=== PATIENT | male | born 1965 | race Caucasian/White ===

== ENCOUNTER 2016-06-27 17:39 | Emergency (ER) | payer MEDICAID ==
[2016-06-27 18:01] VITALS: BP 138/91; PULSE 95; RESP 18; TEMP 98.1; O2SAT 95
--- NOTE | 2016-06-27 18:26 | UCPHY ---
H & P Time Seen by Provider: 06/27/16 18:03 Patient Type: Established HPI/ROS: HPI Chronic rash, Out of hydroxyzine. 51-year-old male by private vehicle. This patient has been seen at this Urgent Care multiple times for the same complaint. He has a dermatitis and psoriasis. He has been referred to a drill press tender many times in the past. He has not yet followed up with a drill press tender. He presents the emergency department complaining of his same rash which is itching more now that he ran out of hydroxyzine. He is asking for a prescription for hydroxyzine and steroids. He denies fever. He reports that he has had this rash for about 8 years now. ROS: Constitutional: No fever, no chills. No weakness. Eyes: No discharge. No changes in vision. ENT: No sore throat. No nasal congestion or rhinorrhea. Respiratory: No cough. No shortness of breath. Skin: As above. Neurological: No headache. No focal weakness or altered sensation. Past medical history: As above. Dermatitis, psoriasis. [facility]. Social history: Here by himself. Physical Exam: General Appearance: Alert, no distress. This patient is responding to questions appropriately and in full sentences. This patient appears well- hydrated and well-nourished. Eyes: Pupils equal and round no pallor or injection. No lid edema, erythema or injection. ENT, Mouth: Mucous membranes are moist. The pharyngeal tissues are unremarkable. No edema or swelling. No asymmetry suggestive of abscess. No erythema or exudates. no oral involvement. Neurological: Motor sensory function is grossly intact. Cranial nerves are normal. Gait is normal. Skin: Warm and dry, Diffuse erythematous macular papular rash over neck and scalp, blanches, no petechiae, plaque-like in areas suggestive of psoriasis. Musculoskeletal: Neck is supple and nontender. Extremities are symmetrical. All joints range without pain or impingement. Psychiatric: No agitation. No depression. Database: EKG: Imaging: Procedures: Emergency department course: After my evaluation, I again discussed the urgency importance of Dermatology follow-up which can be arranged through his primary care physician at [facility]. In the meantime I will prescribe him hydroxyzine and a Medrol Dosepak. He feels comfortable going home and I feel he is safe for discharge. He understands the importance of dermatology follow-up. Return to Urgent Care precautions discussed with him. All of his questions were answered. He was discharged in good condition. Differential Diagnosis: The differential diagnosis on this patient includes but is not limited to Psoriasis, chronic dermatitis. Red man syndrome, Ankit Oleg syndrome erythema nodosum, erythema multiform unlikely. This represents a partial list of diagnoses considered. These considerations are based on history, physical exam, past history, reassessment and diagnostic testing. Smoking Status: Former smoker Constitutional: Initial Vital Signs Temperature (C) 36.7 C 06/27/16 17:56 Heart Rate 95 06/27/16 17:56 Respiratory Rate 18 06/27/16 17:56 Blood Pressure 138/91 H 06/27/16 17:56 O2 Sat (%) 95 06/27/16 17:56 O2 Delivery Mode Room Air Allergies/Adverse Reactions: Penicillins Allergy (Severe, Verified 03/12/16 16:49) Anaphylaxis Home Medications: Medication Instructions Recorded Hydroxyzine HCl 09/28/15 Triamcinolone 0.1% Cream 01/08/16 Desitin 06/27/16 hydrOXYzine HCL [hydrOXYzine HCL 25 mg PO Q6 PRN #30 tab 06/27/16 (RX)] Departure - Departure Disposition: Home, Routine, Self-Care Clinical Impression: Dermatitis, Psoriasis Condition: Good Instructions: Dermatitis (ED), Psoriasis (ED) Additional Instructions: Read and follow provided instructions. Follow-up with your primary care physician at [facility] for referral to a drill press tender as soon as possible. Take medication as prescribed. Return to the emergency department for worsening symptoms or other serious concerns. Referrals: ADENIKE ORTIZ,. [Primary Care Provider] - As per Instructions Prescriptions: hydrOXYzine HCL [hydrOXYzine HCL (RX)] 25 mg PO Q6 PRN #30 tab PRN Reason: Itching - PQRS PQRS Measurement: Not applicable.
== END 2016-06-27 18:31 | disposition home or self-care (01) ==
LOC: CED 17:39
DX: L30.9 Dermatitis, unspecified (principal); L40.9 Psoriasis, unspecified
CPT/HCPCS: 99214-PO; G0463-PO

== ENCOUNTER 2016-10-13 10:10 | Emergency (ER) | payer MEDICAID ==
[2016-10-13 10:21] VITALS: RESP 18
[2016-10-13] MEDS ORDERED: NS 1,000 ML IV ONE (10:40)
--- NOTE | 2016-10-13 10:45 | EDPHY ---
H & P Stated Complaint: cough,fever,lump rt lat neck x 4days Time Seen by Provider: 10/13/16 10:24 HPI/ROS: CHIEF COMPLAINT: Scalp swelling, cough, malaise History by patient HISTORY OF PRESENT ILLNESS: 51-year-old man smoker with psoriasis who presents complaining of 4 days of feeling unwell. His illness began 4 days ago when he suddenly felt very tired like he needs to lie down and take a nap. He went home , lie down and began having shaking chills followed by profuse sweats. He has had persistent diffuse body aches, fatigue and poor appetite. He complains of pain and swelling in his the left side of his scalp as well as a lump in the right side of his neck. He does have psoriasis on his neck and scalp but says is not usually so red and swollen. He also states that he has says cysts on his scalp but they are not usually painful. He has had a persistent dry, nonproductive cough. He denies any runny nose or sore throat. He has had no nausea or vomiting but he feels like he may begin to have diarrhea at any time and he has had a poor appetite been unable to eat. He says he has lost 8 lb over the last 4 days. He denies any back pain or urinary symptoms. He denies any alcohol or drug use. 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 REVIEW OF SYSTEMS: As in HPI, and all other systems reviewed and are negative Source: Patient - Personal History Current Tetanus/Diphtheria Vaccine: Yes Tetanus Vaccine Date: 2014 - Medical/Surgical History Hx Asthma: No Hx Chronic Respiratory Disease: No Hx Diabetes: No Hx Cardiac Disease: No Hx Renal Disease: No Hx Cirrhosis: No Hx Alcoholism: No Hx HIV/AIDS: No Hx Splenectomy or Spleen Trauma: No Other PMH: PMH:psoriasis, dermatitis,fractured legs - Family History Significant Family History: No pertinent family hx - Social History Smoking Status: Current every day smoker Alcohol Use: None Drug Use: None - Physical Exam Exam: General Appearance: Alert, nontoxic-appearing. Eyes: Pupils equal and round no pallor or injection. Head: Positive left-sided scalp tenderness and bogginess with diffuse erythema , multiple cyst-like lesions which are mildly tender ENT, Mouth: Mucous membranes moist. Oropharynx clear with no tonsillar enlargement Neck: Supple, without meningismus, positive half dollar sized tender node in right lateral posterior neck area, no anterior nodes, positive tender left lateral neck, positive diffuse erythema on Skin with cracking and scaling Respiratory: Normal, effort, There are no retractions, lungs are clear to auscultation. Cardiovascular: Regular rate and rhythm. Gastrointestinal: Abdomen is soft and nontender, no masses, bowel sounds normal. Neurological: Awake, alert and oriented x 3, no pronator drift, normal gait, no pronator drift Skin: As above, bilateral psoriatic plaques on knees and elbows Musculoskeletal: Neck is supple nontender. Extremities are symmetrical, full range of motion. Psychiatric: Patient has normal affect, there is no agitation. Constitutional: Initial Vital Signs Temperature (C) 37.2 C 10/13/16 10:13 Heart Rate 92 10/13/16 10:13 Respiratory Rate 18 10/13/16 10:13 Blood Pressure 123/88 H 10/13/16 10:13 O2 Sat (%) 95 10/13/16 10:13 Allergies/Adverse Reactions: Penicillins Allergy (Severe, Verified 10/13/16 10:14) Anaphylaxis Home Medications: Medication Instructions Recorded Triamcinolone 0.1% Cream 01/08/16 Clindamycin HCl [Clindamycin] 600 mg PO TID 14 Days 10/13/16 Medical Decision Making - Diagnostics Imaging: Discussed imaging studies w/ call center operations manager Radiologist ED Course/Re-evaluation: 51-year-old man presents with fever, cough, scalp redness and swelling in lymph nodes in his neck consistent with scalp cellulitis. Chest x-ray preliminary reading due to PACs down time showed no evidence of pneumonia. Patient had elevated white blood cell count but lactate was within normal limits as were his vital signs. He was given a L of fluid. He remained afebrile in the emergency department. He is nontoxic-appearing and I think a trial of oral antibiotics is reasonable at this point. We discussed return precautions including fever, worsening, drainage from the wounds or other worsening. I also recommend close follow-up with his primary care physician and if the lumps in his neck do not resolve after course of antibiotics these will need further evaluation. I explained this to the patient who expresses verbal understanding. - Data Points Laboratory Results: Laboratory Results 10/13/16 10:54 10/13/16 10:54 10/13/16 10/13/16 10/13/16 10:54 10:54 10:54 WBC 13.68 10^3/uL H 10^3/uL (3.80-9.50) RBC 5.48 10^6/uL 10^6/uL (4.40-6.38) Hgb 15.7 g/dL g/dL (13.7-17.5) Hct 46.3 % % (40.0-51.0) MCV 84.5 fL fL (81.5-99.8) MCH 28.6 pg pg (27.9-34.1) MCHC 33.9 g/dL g/dL (32.4-36.7) RDW 13.2 % % (11.5-15.2) Plt Count 305 10^3/uL 10^3/uL (150-400) MPV 9.2 fL fL (8.7-11.7) Neut % (Auto) 76.3 % H % (39.3-74.2) Lymph % (Auto) 11.3 % L % (15.0-45.0) [place] % (Auto) 11.2 % % (4.5-13.0) Eos % (Auto) 0.4 % L % (0.6-7.6) Baso % (Auto) 0.4 % % (0.3-1.7) Nucleat RBC Rel Count 0.0 % % (0.0-0.2) Absolute Neuts (auto) 10.43 10^3/uL H 10^3/uL (1.70-6.50) Absolute Lymphs (auto) 1.55 10^3/uL 10^3/uL (1.00-3.00) Absolute Monos (auto) 1.53 10^3/uL H 10^3/uL (0.30-0.80) Absolute Eos (auto) 0.06 10^3/uL 10^3/uL (0.03-0.40) Absolute Basos (auto) 0.05 10^3/uL 10^3/uL (0.02-0.10) Absolute Nucleated RBC 0.00 10^3/uL 10^3/uL (0-0.01) Immature Gran % 0.4 % % (0.0-1.1) Immature Gran # 0.06 10^3/uL 10^3/uL (0.00-0.10) ABG Lactic Acid 1.3 mmol/L mmol/L (0.5-1.6) Sodium 140 mEq/L mEq/L (134-144) Potassium 4.2 mEq/L mEq/L (3.5-5.2) Chloride 100 mEq/L mEq/L (97-110) Carbon Dioxide 23 mEq/l mEq/l (22-31) Anion Gap 17 mEq/L H mEq/L (8-16) BUN 14 mg/dL mg/dL (7-23) Creatinine 0.7 mg/dL mg/dL (0.7-1.3) Estimated GFR > 60 Glucose 97 mg/dL mg/dL (70-100) Calcium 9.1 mg/dL mg/dL (8.5-10.4) Influenza Typ A,B (DFA) 10/13/16 10:45 WBC RBC Hgb Hct MCV MCH MCHC RDW Plt Count MPV Neut % (Auto) Lymph % (Auto) [place] % (Auto) Eos % (Auto) Baso % (Auto) Nucleat RBC Rel Count Absolute Neuts (auto) Absolute Lymphs (auto) Absolute Monos (auto) Absolute Eos (auto) Absolute Basos (auto) Absolute Nucleated RBC Immature Gran % Immature Gran # ABG Lactic Acid Sodium Potassium Chloride Carbon Dioxide Anion Gap BUN Creatinine Estimated GFR Glucose Calcium Influenza Typ A,B (DFA) NEGATIVE FOR FLU (NEGATIVE) Medications Given: Discontinued Medications Sodium Chloride (Ns) 1,000 mls @ 0 mls/hr IV ONCE ONE PRN Reason: Wide Open Stop: 10/13/16 10:41 Last Admin: 10/13/16 11:00 Dose: 1,000 mls Departure - Departure Disposition: Home, Routine, Self-Care Clinical Impression: Cellulitis of scalp Condition: Fair Instructions: Cellulitis (ED) Additional Instructions: You were seen by Dr. Nancy Yousif today. Return for any worsening or new concerns. Take clindamycin (antibiotic) as directed. Return to ER if you get worse. Follow up with primary care physician or in the ED if the lump to Neck does not resolve after the course of antibiotics or they seem to be getting bigger. Referrals: ADENIKE ORTIZ,. [Primary Care Provider] - As per Instructions Stand Alone Forms: Work Excuse Prescriptions: Clindamycin HCl [Clindamycin] 600 mg PO TID 14 Days
[2016-10-13 11:14] LABS: % IMMATURE GRANULYOCYTES 0.4 % (0.0-1.1); ABSOLUTE IMMATURE GRANULOCYTES 0.06 10^3/uL (0.00-0.10); ADD DIFF? NO; ADD MORPH? NO; ADD SCAN? NO; ATYPICAL LYMPHOCYTE FLAG 0 (0-99); FRAGMENT RBC FLAG 0 (0-99); HEMATOCRIT 46.3 % (40.0-51.0); HEMOGLOBIN 15.7 g/dL (13.7-17.5); LEFT SHIFT FLG 0 (0-99); LIPEMIA HEMOLYSIS FLAG 90 (0-99); MEAN CELL HEMOGLOBIN 28.6 pg (27.9-34.1); MEAN CELL HEMOGLOBIN CONCENTR. 33.9 g/dL (32.4-36.7); MEAN CELL VOLUME 84.5 fL (81.5-99.8); MEAN PLATELET VOLUME 9.2 fL (8.7-11.7); PLATELET CLUMPS FLAG 10 (0-99); PLATELET COUNT 305 10^3/uL (150-400); RED BLOOD CELL COUNT 5.48 10^6/uL (4.40-6.38); RED CELL DISTRIBUTION WIDTH 13.2 % (11.5-15.2)
[2016-10-13 11:28] LABS: ANION GAP 17 mEq/L (8-16); CALCIUM 9.1 mg/dL (8.5-10.4); CARBON DIOXIDE 23 mEq/l (22-31); CHLORIDE 100 mEq/L (97-110); CREATININE 0.7 mg/dL (0.7-1.3); GLOMERULAR FILTRATION RATE > 60; GLUCOSE 97 mg/dL (70-100); POTASSIUM 4.2 mEq/L (3.5-5.2); SODIUM 140 mEq/L (134-144)
[2016-10-13 12:02] VITALS: TEMP 99.1
[2016-10-13 12:21] VITALS: BP 141/80; PULSE 90; O2SAT 97
[2016-10-13] MEDS ORDERED: CLINDAMYCIN 150 MG CAP ONE (12:38)
[2016-10-13] MEDS ORDERED: CLINDAMYCIN 150 MG CAP PO ONE (12:39)
== END 2016-10-13 12:45 | disposition home or self-care (01) ==
LOC: CED 10:10
DX: L03.811 Cellulitis of head [any part, except face] (principal); F17.200 Nicotine dependence, unspecified, uncomplicated
CPT/HCPCS: 71020-PO; 80048-PO; 83605-PO; 85025-PO; 87400-PO

== ENCOUNTER 2017-01-19 12:31 | Emergency (ER) | payer MEDICAID ==
[2017-01-19 12:41] VITALS: RESP 16; TEMP 97.5
--- NOTE | 2017-01-19 13:19 | EDPHY ---
H & P Time Seen by Provider: 01/19/17 13:00 HPI/ROS: This patient is long history of psoriasis that he reports tends to flare if he gets minor abrasions to his arms or hands. He explains that he work on a car few days ago sustaining superficial wounds which are healing but it seemed to cause a flare of his psoriasis he complains of itching and mild discomfort in his scalp bilateral arms and upper back is making sleep difficult. He continues with triamcinolone steroid cream by requests further treatment since his symptoms worsen. In the past he has had occasions of associated cellulitis but he states that he does not think he has this at this time because he has not had any significant pain or fevers associated with the symptoms. He also does not have any the swelling that has happened in the past when he has associated cellulitis. ROS: Constitutional: No fevers HEENT: No significant facial lesions that does complain of scalp. No ocular symptoms. Pulmonary: No complaints Neuro: No numbness or tingling 5 point ROS is otherwise negative. Past Medical/Surgical History: Psoriasis Smoking Status: Current every day smoker Physical Exam: Physical Exam Vital signs are normal. General: Pleasant 51-year-old male of light complexion with red hair No acute distress HEENT: Nose clear oropharynx clear with no intraoral lesions Eyes: Pupils equal and react to light. Extraocular motions are intact. No conjunctival injection Lungs: No respiratory distress. Cardiac: Brisk capillary refill is intact throughout. Pulses are 2+ and symmetric in the affected extremity. Skin: No rash or pallor - there is a small erythematous papules-1-2 mm to the scalp, upper back and face with plaque-like lesions consistent with psoriasis over extensor surfaces. He has a few superficial abrasions to bilateral forearms with no surrounding warmth or fluctuance. Neuro: Alert and oriented x3 with no sensorimotor deficits. Constitutional: Initial Vital Signs Temperature (C) 36.4 C 01/19/17 12:32 Heart Rate 82 01/19/17 12:32 Respiratory Rate 16 01/19/17 12:32 Blood Pressure 140/94 H 01/19/17 12:32 O2 Sat (%) 94 01/19/17 12:32 O2 Delivery Mode Room Air Allergies/Adverse Reactions: Penicillins Allergy (Severe, Verified 01/19/17 12:38) Anaphylaxis Home Medications: Medication Instructions Recorded Triamcinolone 0.1% Cream 01/08/16 Tazarotene [Tazorac] 30 gm TP DAILY #30 gel..gram. 01/19/17 hydrOXYzine HCL [Hydroxyzine HCl] 50 - 100 mg PO Q6 PRN #30 tablet 01/19/17 MDM/Departure - [facility] ED Course/Re-evaluation: Discussion: Findings are consistent with psoriasis in superficial abrasions to his arms. Appreciate no findings that would suggest cellulitis or abscess. Counseled him regarding this. - Depart Disposition: Home, Routine, Self-Care Clinical Impression: Psoriasis Condition: Good Instructions: Psoriasis (ED) Additional Instructions: Diagnosis: Psoriasis Plan: Continue your triamcinolone. Add Tazorac cream once a day in addition. For itching hydroxyzine as prescribed Follow up with Dr. Weeks-cycle specialist Prescriptions: hydrOXYzine HCL [Hydroxyzine HCl] 50 - 100 mg PO Q6 PRN #30 tablet PRN Reason: Itching Tazarotene [Tazorac] 30 gm TP DAILY #30 gel..gram. Referrals: Catie CABALLERO [Primary Care Provider] - As per Instructions REJI WEEKS [Medical Doctor] - As per Instructions
[2017-01-19 13:33] VITALS: BP 120/71; PULSE 68; O2SAT 95
== END 2017-01-19 13:25 | disposition home or self-care (01) ==
LOC: CED 12:31
DX: L40.9 Psoriasis, unspecified (principal); F17.200 Nicotine dependence, unspecified, uncomplicated

== ENCOUNTER 2017-01-22 13:24 | Emergency (ER) | payer MEDICAID ==
[2017-01-22 13:37] VITALS: BP 132/101; PULSE 92; RESP 16; TEMP 99; O2SAT 95
[2017-01-22] MEDS ORDERED: predniSONE 20 MG TAB PO ONE (13:51)
--- NOTE | 2017-01-22 13:55 | EDPHY ---
H & P Time Seen by Provider: 01/22/17 13:39 HPI/ROS: I saw this patient on 01/19/2017 for his psoriasis when he presented with an exacerbation. I prescribed Tazorac cream for him to use in addition to his triamcinolone. 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 His impression is that the Tazorac made the rash worse as he developed more redness to his arms within 24 hours of applying Tazorac. However, again he is also out of triamcinolone for 4 days now. 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 He describes significant relief of the itching however with the hydroxyzine the prescribed and he admits that he has been sleeping well due to control of the itching since he started the hydroxyzine as needed. ROS: No fevers no other constitutional symptoms Immunological: His superficial abrasions to his arms or healing. Integumentary: No new complaints. See HPI HEENT: No intraoral lesions. Pulmonary: No wheezing or shortness of breath 5 point ROS is otherwise negative Past Medical/Surgical History: Long history of psoriasis Smoking Status: Current every day smoker Physical Exam: Physical Exam Vital signs are normal. General: No acute distress HEENT: Atraumatic. Nose: Clear oropharynx: Clear with no angioedema. No intraoral lesions. Eyes: Pupils equal and react to light. Extraocular motions are intact. No conjunctival injection Lungs: Clear to auscultation bilaterally. No respiratory distress. Cardiac: Brisk capillary refill is intact throughout. Pulses are 2+ and symmetric in the affected extremity. Skin: Patient has erythema and the scalp a bilateral arms more than trunk with dry skin and some superficial desquamation small erythematous papules no significant warmth to touch. No petechia or purpura. Neuro: Alert and oriented x3 with no sensorimotor deficits. Constitutional: Initial Vital Signs Temperature (C) 37.2 C 01/22/17 13:34 Heart Rate 92 01/22/17 13:34 Respiratory Rate 16 01/22/17 13:34 Blood Pressure 132/101 H 01/22/17 13:34 O2 Sat (%) 95 01/22/17 13:34 O2 Delivery Mode Room Air Allergies/Adverse Reactions: Penicillins Allergy (Severe, Verified 01/22/17 13:38) Anaphylaxis Home Medications: Medication Instructions Recorded Triamcinolone 0.1% Cream 01/08/16 Tazarotene [Tazorac] 30 gm TP DAILY #30 gel..gram. 01/19/17 hydrOXYzine HCL [Hydroxyzine HCl] 50 - 100 mg PO Q6 PRN #30 tablet 01/19/17 predniSONE 60 mg PO DAILY #17 tab 01/22/17 MDM/Departure - MDM Medications Given: Discontinued Medications Prednisone (Prednisone) 60 mg PO EDNOW ONE Stop: 01/22/17 13:52 Last Admin: 01/22/17 13:59 Dose: 60 mg ED Course/Re-evaluation: The patient's findings are characteristic of significant psoriasis. Appreciate no evidence currently of associated cellulitis or other complicating factors. I think that his symptoms worsen due to him running of the triamcinolone rather than a allergic reaction to the Tazorac. Will start him on oral prednisone-60 mg dose given here and will continue this at home. I explained he can take this at the same time as the triamcinolone . He will continue the hydroxyzine if needed for itching. - Depart Disposition: Home, Routine, Self-Care Clinical Impression: Psoriasis Condition: Good Instructions: Psoriasis (ED) Additional Instructions: diagnosis: Psoriasis plan: Prednisone as prescribed Start triamcinolone addition starting tomorrow. continue your hydroxyzine for itching if needed. Follow-up with primary care physician. Return for any significant worsening despite treatment plan Prescriptions: predniSONE 60 mg PO DAILY #17 tab Referrals: ADENIKE ORTIZ,. [Primary Care Provider] - As per Instructions
== END 2017-01-22 14:13 | disposition home or self-care (01) ==
LOC: CED 13:24
DX: L40.9 Psoriasis, unspecified (principal); F17.200 Nicotine dependence, unspecified, uncomplicated

== ENCOUNTER 2017-10-11 19:38 | Emergency (ER) | payer MEDICAID ==
[2017-10-11 19:49] VITALS: BP 160/99
[2017-10-11] MEDS ORDERED: predniSONE 20 MG TAB PO ONE (19:56)
--- NOTE | 2017-10-11 19:57 | EDPHY ---
H & P Time Seen by Provider: 10/11/17 19:42 HPI/ROS: 52 yo M presents c/o burning skin. Long hx of psoriais , uses triamcinolone daily, often runs out. Occasionally uses hydroxyzine for itching. No fever or chills, no shortness of breath. Review of systems As per HPI General no fever no chills no weakness HEENT no eye pain no eye discharge. No eye redness, no sore throat Respiratory no cough, no shortness of breath Cardiac no chest pain, no peripheral edema GI no abdominal pain, no diarrhea, no constipation, no nausea, no vomiting no flank pain, no hematuria, no dysuria Musculoskeletal no myalgias, no joint pain Heme no easy bruising, no easy bleeding Endo no polyuria, no polydipsia Skin pos rashes, pos pruritus Neuro no syncope, no dizziness, no headaches Psych is no suicidal ideation, no homicidal ideation Past Medical/Surgical History: psoriasis Social History: occasional alcohol, no drugs Smoking Status: Current every day smoker Physical Exam: 52 yo M alert and oriented in nad non toxic appearance at, nc eomi, anicteric, conj without erythema neck supple, no jvd lungs cta bilat heart rrr abd nabs ext no cce skin with areas of erythema, induration primarily on extremities, scattered areas on trunk Constitutional: Initial Vital Signs Temperature (C) 36.6 C 10/11/17 19:46 Heart Rate 84 10/11/17 19:46 Respiratory Rate 18 10/11/17 19:46 Blood Pressure 160/99 H 10/11/17 19:46 O2 Sat (%) 97 10/11/17 19:46 O2 Delivery Mode Room Air Allergies/Adverse Reactions: Penicillins Allergy (Severe, Verified 01/22/17 13:38) Anaphylaxis Home Medications: Medication Instructions Recorded Triamcinolone 0.1% Cream 01/08/16 Tazarotene [Tazorac] 30 gm TP DAILY #30 gel..gram. 01/19/17 hydrOXYzine HCL [Hydroxyzine HCl] 50 - 100 mg PO Q6 PRN #30 tablet 01/19/17 predniSONE 60 mg PO DAILY #17 tab 01/22/17 predniSONE [Deltasone] 40 mg PO DAILY 5 Days #10 tablet 10/11/17 Medical Decision Making ED Course/Re-evaluation: Patient seen evaluated for burning skin. Impression Acute on chronic psoriasis Plan Prednisone burst Patient given prednisone 60 mg p.o. In emergency department Given prescription for prednisone 40 mg p.o. Q.day x5 days Advised follow-up with his primary care clinic Differential Diagnosis: Differential diagnosis considered but not limited to: Cellulitis, urticaria, inflammation of current psoriasis, eczema - Data Points Medications Given: Discontinued Medications Prednisone (Prednisone) 60 mg PO EDNOW ONE Stop: 10/11/17 19:57 Last Admin: 10/11/17 20:04 Dose: 60 mg Departure - Departure Disposition: Home, Routine, Self-Care Clinical Impression: Psoriasis, Dermatitis Condition: Good Instructions: Psoriasis (ED) Referrals: ADENIKE ORTIZ [Other] - As per Instructions Prescriptions: predniSONE [Deltasone] 40 mg PO DAILY 5 Days #10 tablet
== END 2017-10-11 20:05 | disposition home or self-care (01) ==
LOC: CED 19:38
DX: L30.9 Dermatitis, unspecified (principal); L40.9 Psoriasis, unspecified; F17.200 Nicotine dependence, unspecified, uncomplicated
CPT/HCPCS: J7512

== ENCOUNTER 2017-11-04 08:26 | Emergency (ER) | payer MEDICAID ==
[2017-11-04 08:32] VITALS: BP 155/94
[2017-11-04] MEDS ORDERED: predniSONE 20 MG TAB PO ONE (08:38)
--- NOTE | 2017-11-04 08:41 | EDPHY ---
H & P Time Seen by Provider: 11/04/17 08:30 HPI/ROS: This patient has a long history of psoriasis and is currently having a flare despite compliance with his triamcinolone. He also takes hydroxyzine for itching. He reports increasing discomfort from the itching to his torso primarily as well as his hands and arms. He reports that the worsening of the symptoms of taken place over the past week. He came in by private vehicle for further evaluation of the symptoms requesting prednisone as he has had some success with prednisone treatment in the past. However, he reports that in the past a 5 day course was insufficient and that he responds better to longer wetalbx-4-60 days. ROS: Constitutional: No fevers or chills. No fatigue. HEENT: No URI symptoms or other complaints. No ocular symptoms. integumentary: No intraoral lesions. Pulmonary: No shortness of breath Cardiovascular: No complaints 5 point ROS is otherwise negative. Past Medical/Surgical History: Psoriasis Smoking Status: Current every day smoker Physical Exam: Physical Exam Vital signs are normal. General: No acute distress HEENT: Eyes: Pupils equal and react to light. Extraocular motions are intact. No conjunctival injection no intraoral lesions. Lungs: No respiratory distress. Cardiac: Brisk capillary refill is intact throughout. Skin: Diffuse erythematous plaques and mild desquamation to the back bilateral arms and face. No significant warmth to touch. No purulent lesions. No petechia or purpura. Neuro: Alert and oriented with no sensorimotor deficits. Initial differential diagnosis: Psoriasis flare, contact dermatitis, doubt cellulitis Constitutional: Initial Vital Signs Temperature (C) 36.6 C 11/04/17 08:30 Heart Rate 81 11/04/17 08:30 Respiratory Rate 16 11/04/17 08:30 Blood Pressure 155/94 H 11/04/17 08:30 O2 Sat (%) 99 11/04/17 08:30 O2 Delivery Mode Room Air Allergies/Adverse Reactions: Penicillins Allergy (Verified 11/04/17 08:31) Pt reports Anaphylaxis Home Medications: Medication Instructions Recorded Triamcinolone 0.1% Cream 01/08/16 hydrOXYzine HCL [Hydroxyzine HCl] 11/04/17 predniSONE 60 mg PO DAILY #25 tab 11/04/17 MDM/Departure - MDM Medications Given: Discontinued Medications Prednisone (Prednisone) 60 mg PO EDNOW ONE Stop: 11/04/17 08:39 Last Admin: 11/04/17 08:40 Dose: 60 mg ED Course/Re-evaluation: Prednisone-60 mg p. O. Discussion: Acute on chronic psoriasis. Will treat with prednisone for 10 days with a taper. I counseled patient regarding this. He will follow up with primary care physician. He understands need to return should she develop worsening despite the treatment plan. - Depart Disposition: Home, Routine, Self-Care Clinical Impression: Psoriasis Condition: Good Instructions: Psoriasis (ED) Additional Instructions: Diagnosis: Psoriasis Plan: Prednisone as prescribed Continue your triamcinolone and hydroxyzine Follow up with primary care physician for any ongoing symptoms Return emergency department for any significant worsening despite the treatment plan. Prescriptions: predniSONE 60 mg PO DAILY #25 tab Referrals: ADENIKE ORTIZ,. [Primary Care Provider] - As per Instructions
== END 2017-11-04 08:52 | disposition home or self-care (01) ==
LOC: CED 08:26
DX: L40.9 Psoriasis, unspecified (principal); F17.200 Nicotine dependence, unspecified, uncomplicated
CPT/HCPCS: J7512

== ENCOUNTER 2017-11-27 10:13 | Emergency (ER) | payer MEDICAID ==
[2017-11-27] MEDS ORDERED: CARBAMIDE PEROXIDE 15 ML OTIC.BTL RTEAR ONE (10:23)
--- NOTE | 2017-11-27 10:52 | EDPHY ---
H & P Time Seen by Provider: 11/27/17 10:16 HPI/ROS: This patient complains of right ear cerumen impaction. He explains that he felt the had obstruction is right ear canal and try to clean his ear canal with Q-tip this morning that he simply packed wax in deeper. He reports minimal discomfort in the right ear and diminished hearing that he attributes to what he thinks is cerumen impaction. He has no left ear complaints and no other complaints associated with this. He came in by private vehicle for further evaluation. ROS: Constitutional: No fevers or chills HEENT: No URI symptoms. No sore throat. No drainage from the ear. Integumentary: He has psoriasis but is minimally symptomatic at this time and well controlled. 5 point ROS is otherwise negative. Past Medical/Surgical History: Psoriasis Smoking Status: Current every day smoker Physical Exam: Physical Exam Vital signs are normal. General: No acute distress HEENT: Nose is clear. Oropharynx is clear ears: Right external canal exam reveals cerumen impaction. Left external canal with minimal cerumen in TM is clear. Eyes: Pupils equal and react to light. Extraocular motions are intact. Cardiac: Brisk capillary refill is intact throughout. Skin: No rash or pallor. Neuro: Alert and oriented Initial differential diagnosis: Cerumen impaction, otitis externa, otitis media Constitutional: Initial Vital Signs Temperature (C) 36.4 C 11/27/17 10:16 Heart Rate 76 11/27/17 10:16 Respiratory Rate 18 11/27/17 10:16 Blood Pressure 162/99 H 11/27/17 10:16 O2 Sat (%) 95 11/27/17 10:16 O2 Delivery Mode Room Air Allergies/Adverse Reactions: Penicillins Allergy (Verified 11/27/17 10:18) Pt reports Anaphylaxis Home Medications: Medication Instructions Recorded Triamcinolone 0.1% Cream 01/08/16 hydrOXYzine HCL [Hydroxyzine HCl] 11/04/17 MDM/Departure - MDM Procedures: Cerumen axis applied to the ear by our nurse followed by irrigation with release of cerumen. Patient tolerated this well without complications. On repeat examination the right external canals clear right TM is clear. Medications Given: Discontinued Medications Carbamide Peroxide (Debrox) 5 drop RTEAR EDNOW ONE Stop: 11/27/17 10:24 Last Admin: 11/27/17 10:28 Dose: 5 drop ED Course/Re-evaluation: Debrox solution instilled to the ear and after 15 min years irrigated by our nurse Cristhian - Zulay Disposition: Home, Routine, Self-Care Clinical Impression: Impacted cerumen of right ear Clinical Impression: (Ruled Out): Impacted cerumen of left ear Condition: Good Instructions: Cerumen Impaction (ED) Additional Instructions: Diagnosis: Cerumen impaction Referrals: ADENIKE ORTIZ [Other] - As per Instructions
[2017-11-27 11:11] VITALS: BP 144/105
== END 2017-11-27 11:04 | disposition home or self-care (01) ==
LOC: CED 10:13
PROC: 3E1B78Z Irrigation of Ear using Irrigating Substance, Via Natural or Artificial Opening (ICD-10-PCS; principal; 2017-11-27)
DX: H61.21 Impacted cerumen, right ear (principal); F17.200 Nicotine dependence, unspecified, uncomplicated

== ENCOUNTER 2018-02-10 18:53 | Emergency (ER) | payer MEDICAID ==
[2018-02-10] MEDS ORDERED: predniSONE 20 MG TAB PO ONE (19:00)
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
[2018-02-10 19:02] VITALS: BP 170/102
== END 2018-02-10 19:08 | disposition home or self-care (01) ==
LOC: CED 18:53
DX: L40.9 Psoriasis, unspecified (principal); F17.200 Nicotine dependence, unspecified, uncomplicated
CPT/HCPCS: J7512

== ENCOUNTER 2018-05-18 19:33 | Emergency (ER) | payer MEDICAID ==
[2018-05-18] MEDS ORDERED: CARBAMIDE PEROXIDE 15 ML OTIC.BTL EACHEAR ONE (20:02)
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
[2018-05-18 21:25] VITALS: BP 165/105
== END 2018-05-18 21:25 | disposition home or self-care (01) ==
LOC: CED 19:33
PROC: 3E1B78Z Irrigation of Ear using Irrigating Substance, Via Natural or Artificial Opening (ICD-10-PCS; principal; 2018-05-18)
DX: H61.23 Impacted cerumen, bilateral (principal)

== ENCOUNTER 2018-05-29 17:55 | Emergency (ER) | payer MEDICAID ==
[2018-05-29 18:02] VITALS: BP 170/107
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
[2018-05-29] MEDS: predniSONE 20 MG TAB PO ONE (18:19)
== END 2018-05-29 18:22 | disposition home or self-care (01) ==
LOC: CED 17:55
DX: L40.9 Psoriasis, unspecified (principal); F17.200 Nicotine dependence, unspecified, uncomplicated; Z88.0 Allergy status to penicillin
CPT/HCPCS: J7512

== ENCOUNTER 2018-06-28 16:35 | Emergency (ER) | payer MEDICAID ==
[2018-06-28] MEDS ORDERED: IBUPROFEN 600 MG TAB PO ONE (16:50)
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
[2018-06-28] MEDS ORDERED: CYCLOBENZAPRINE 10MG PREPACK#3 BTL TAKEHOME ONE (18:26)
[2018-06-28] MEDS ORDERED: OXYCODONE/APAP 5/325MG PREPACK#4 BTL TAKEHOME ONE (18:27)
[2018-06-28 19:02] VITALS: BP 147/92
== END 2018-06-28 19:02 | disposition home or self-care (01) ==
LOC: CED 16:35
DX: S43.402A Unspecified sprain of left shoulder joint, initial encounter (principal); M48.56XA Collapsed vertebra, not elsewhere classified, lumbar region, initial encounter for fracture; S80.211A Abrasion, right knee, initial encounter; S80.212A Abrasion, left knee, initial encounter; W00.0XXA Fall on same level due to ice and snow, initial encounter; Y92.481 Parking lot as the place of occurrence of the external cause; Y93.9 Activity, unspecified; Y99.9 Unspecified external cause status
CPT/HCPCS: 72100-PO; 73030-PO; 99284-ER